=== PATIENT | male | born 1960 | race Two or more races ===

== ENCOUNTER 2016-06-26 08:18 | Emergency (ER) | payer SELFPAY ==
[~2016-06-26] VITALS: Ht 175.3 cm; Wt 93.4 kg
[~2016-06-26 08:18] MED LIST: ATIVAN0.5 M1 PO; BUS5 PO; CARBAMAZEP100 MG/5 M PO; COL100 PO; ECO81 PO; NOR10T PO; SERO100 PO; XANAX XR1 M1 PO; ZOC10 PO
[2016-06-26 08:21] VITALS: BP 153/96
== END 2016-06-26 09:27 | disposition home or self-care (01) ==
LOC: ED 08:18
DX: G50.0 Trigeminal neuralgia (principal); F41.9 Anxiety disorder, unspecified

== ENCOUNTER 2016-07-16 13:43 | Emergency (ER) | payer SELFPAY ==
[~2016-07-16] VITALS: Ht 177.8 cm; Wt 93.7 kg
[2016-07-16 14:02] VITALS: BP 148/92
== END 2016-07-16 14:15 | disposition left against medical advice (07) ==
LOC: ED 13:43
DX: G47.00 Insomnia, unspecified (principal); F41.9 Anxiety disorder, unspecified; G50.0 Trigeminal neuralgia; G89.29 Other chronic pain; F31.9 Bipolar disorder, unspecified; M25.569 Pain in unspecified knee; F20.9 Schizophrenia, unspecified; Z88.5 Allergy status to narcotic agent

== ENCOUNTER 2016-07-16 21:39 | Emergency (ER) | payer SELFPAY ==
[2016-07-17 01:33] VITALS: BP 138/85
== END 2016-07-17 01:33 | disposition home or self-care (01) ==
LOC: ED 21:39
DX: S62.102A Fracture of unspecified carpal bone, left wrist, initial encounter for closed fracture (principal); S83.92XA Sprain of unspecified site of left knee, initial encounter; S53.402A Unspecified sprain of left elbow, initial encounter; S43.402A Unspecified sprain of left shoulder joint, initial encounter; S80.812A Abrasion, left lower leg, initial encounter; Z88.5 Allergy status to narcotic agent; W17.89XA Other fall from one level to another, initial encounter; Y93.89 Activity, other specified; Y92.89 Other specified places as the place of occurrence of the external cause; Y99.8 Other external cause status
CPT/HCPCS: 90715; J1885; J2405; J3010; Q0092

== ENCOUNTER 2016-08-03 23:59 | Emergency (ER) | payer SELFPAY ==
[2016-08-04 00:52] VITALS: BP 134/86
== END 2016-08-04 00:52 | disposition home or self-care (01) ==
LOC: ED 23:59
DX: F41.9 Anxiety disorder, unspecified (principal); G50.0 Trigeminal neuralgia; Z76.0 Encounter for issue of repeat prescription; Z88.5 Allergy status to narcotic agent

== ENCOUNTER 2016-08-06 05:00 | Emergency (ER) | payer SELFPAY ==
[2016-08-06 08:44] VITALS: BP 117/74
== END 2016-08-06 08:44 | disposition home or self-care (01) ==
LOC: ED 05:00
DX: M25.532 Pain in left wrist (principal)

== ENCOUNTER 2016-08-26 21:24 | Emergency (ER) | payer MEDICAID ==
[2016-08-26 23:21] VITALS: BP 116/78
== END 2016-08-26 23:21 | disposition home or self-care (01) ==
LOC: ED 21:24
DX: S52.592A Other fractures of lower end of left radius, initial encounter for closed fracture (principal); S52.202A Unspecified fracture of shaft of left ulna, initial encounter for closed fracture; F41.9 Anxiety disorder, unspecified; W22.8XXA Striking against or struck by other objects, initial encounter; Y93.89 Activity, other specified; Y92.89 Other specified places as the place of occurrence of the external cause; Y99.8 Other external cause status
CPT/HCPCS: J1170; J1885; Q0162

== ENCOUNTER 2016-08-30 20:35 | Emergency (ER) | payer MEDICAID ==
[2016-08-30 22:39] VITALS: BP 126/88
== END 2016-08-30 22:39 | disposition home or self-care (01) ==
LOC: ED 20:35
DX: F41.9 Anxiety disorder, unspecified (principal); Z79.899 Other long term (current) drug therapy

== ENCOUNTER 2016-09-29 11:27 | Emergency (ER) | payer OTHER ==
[2016-09-29 15:05] VITALS: BP 143/86
== END 2016-09-29 15:05 | disposition home or self-care (01) ==
LOC: ED 11:27
DX: S52.572A Other intraarticular fracture of lower end of left radius, initial encounter for closed fracture (principal); S52.612A Displaced fracture of left ulna styloid process, initial encounter for closed fracture; G50.0 Trigeminal neuralgia; Z86.73 Personal history of transient ischemic attack (TIA), and cerebral infarction without residual deficits; Z88.5 Allergy status to narcotic agent; W18.40XA Slipping, tripping and stumbling without falling, unspecified, initial encounter; Y99.8 Other external cause status; Y93.89 Activity, other specified; Y92.89 Other specified places as the place of occurrence of the external cause
CPT/HCPCS: J1885; J3010; Q0162

== ENCOUNTER 2016-10-02 09:18 | Emergency (ER) | payer OTHER ==
[2016-10-02 13:37] VITALS: BP 145/89
== END 2016-10-02 13:37 | disposition home or self-care (01) ==
LOC: ED 09:18
DX: F41.9 Anxiety disorder, unspecified (principal); I10 Essential (primary) hypertension; Z79.899 Other long term (current) drug therapy; Z88.5 Allergy status to narcotic agent

== ENCOUNTER 2016-10-31 17:12 | Emergency (ER) | payer OTHER ==
[~2016-10-31] VITALS: Ht 175.3 cm; Wt 93.9 kg
[2016-10-31 21:27] VITALS: BP 142/56
== END 2016-10-31 21:27 | disposition home or self-care (01) ==
LOC: ED 17:12
DX: F41.9 Anxiety disorder, unspecified (principal); F13.10 Sedative, hypnotic or anxiolytic abuse, uncomplicated; Z86.73 Personal history of transient ischemic attack (TIA), and cerebral infarction without residual deficits

== ENCOUNTER 2016-11-27 19:38 | Emergency (ER) | payer OTHER ==
[2016-11-27 20:14] VITALS: BP 156/98
== END 2016-11-27 20:14 | disposition home or self-care (01) ==
LOC: ED 19:38
DX: Z76.0 Encounter for issue of repeat prescription (principal); F41.9 Anxiety disorder, unspecified; Z79.899 Other long term (current) drug therapy

== ENCOUNTER 2016-12-05 03:33 | Emergency (ER) | payer OTHER ==
[2016-12-05 04:51] VITALS: BP 141/91
== END 2016-12-05 04:51 | disposition home or self-care (01) ==
LOC: ED 03:33
DX: F41.1 Generalized anxiety disorder (principal); F19.239 Other psychoactive substance dependence with withdrawal, unspecified; F31.9 Bipolar disorder, unspecified

== ENCOUNTER 2017-01-05 07:30 | Emergency (ER) | payer OTHER ==
[2017-01-05 09:45] VITALS: BP 127/83
== END 2017-01-05 09:45 | disposition home or self-care (01) ==
LOC: ED 07:30
DX: Z76.0 Encounter for issue of repeat prescription (principal); F41.9 Anxiety disorder, unspecified; G50.0 Trigeminal neuralgia; F31.9 Bipolar disorder, unspecified; F20.9 Schizophrenia, unspecified

== ENCOUNTER 2017-01-07 09:29 | Emergency (ER) | payer OTHER ==
[~2017-01-07] VITALS: Ht 175.3 cm; Wt 94.3 kg
[2017-01-07 10:11] VITALS: BP 140/78
== END 2017-01-07 10:11 | disposition home or self-care (01) ==
LOC: ED 09:29
DX: Z76.0 Encounter for issue of repeat prescription (principal); G50.0 Trigeminal neuralgia; R03.0 Elevated blood-pressure reading, without diagnosis of hypertension; Z86.73 Personal history of transient ischemic attack (TIA), and cerebral infarction without residual deficits

== ENCOUNTER 2017-02-01 06:36 | Inpatient (IN) | payer OTHER ==
[~2017-02-01] VITALS: Ht 175.3 cm; Wt 95.7 kg
--- NOTE | 2017-02-01 07:08 | NUR ---
RECEIVED PT CRYING. LAYING IN BED, C/O RIGHT FACIAL, EAR, AND EYE PAIN. PT REPORTS HE CANNOT OPEN HIS EYES D/T PAIN. PT STATES "IT FEELS LIKE ELECTRICITY." PT OFFERED WARM BLANKET. PT REMAINS ON CM.
--- NOTE | 2017-02-01 07:11 | NUR ---
MEDICATION ADMINISTERED PER MD ORDER, PT VERBALIZED UNDERSTANDING OF MEDICATION PRIOR TO ADMINISTRATION.
--- NOTE | 2017-02-01 08:17 | NUR ---
PT CRYING AND CONTINUES TO C/O RIGHT FACIAL PAIN, DR GUIDO AWARE, NEW ORDERS RECEIVED.
--- NOTE | 2017-02-01 08:21 | NUR ---
MEDICATION ADMINISTERED IM PER DR GUIDO'S ORDERS, PT VERBALIZED UNDERSTANDING PRIOR TO ADMINISTRATION.
--- NOTE | 2017-02-01 09:32 | NUR ---
PT C/O "ELECTRICITY THROUGH MY FACE WHEN I OPEN MY EYES." PT NOT RELIEVED OF PAIN POST ADMINISTRATION. DR GUIDO AWARE, WILL CARRY OUT NEW ORDERS.
--- NOTE | 2017-02-01 09:43 | NUR ---
MEDICATION ADMINISTERED PER MD ORDER, PT VERBALIZES UNDERSTANDING OF MEDICATION PRIOR TO ADMINISTRATION.
--- NOTE | 2017-02-01 10:13 | NUR ---
PT CRYING OF PAIN, DR GUIDO AWARE, NO NEW ORDERS RECEIVED.
--- NOTE | 2017-02-01 10:17 | NUR ---
DR GUIDO AT BEDSIDE TO DISCUSS PLAN OF CARE.
--- NOTE | 2017-02-01 10:59 | NUR ---
MEDICATED FOR PAIN. PT STILL C/O 10/ FACIAL PAIN. NS BOLUS INFUSING.
--- NOTE | 2017-02-01 11:07 | NUR ---
PT C/O NAUSEA, DR. GUIDO INFORMED, PER MD GIVE ZOFRAN 4 MG IVP. PT @ CT AT THIS TIME, AWAKE, ORIENTED, ABLE TO TALK CLEARLY, NO SIGNS OF RESPIRATORY DISTRESS.
--- NOTE | 2017-02-01 11:10 | NUR ---
PT TO CT VIA [facility].
--- NOTE | 2017-02-01 11:16 | NUR ---
PT RETURNED FROM CT VIA [facility].
--- NOTE | 2017-02-01 11:48 | NUR ---
PT CONTINUES TO C/O PAIN. PT STATES "I DONT WANT ANYMORE PAIN MEDICATION." DR GUIDO AWARE.
--- NOTE | 2017-02-01 11:57 | NUR ---
PT FEELING "ANXIOUS," DR GUIDO AWARE, WILL CARRY OUT NEW ORDERS.
[2017-02-01] MEDS ORDERED: XAN1 PO (11:59)
[2017-02-01] MEDS ORDERED: TEGRETOL200 MG PO (12:02)
--- NOTE | 2017-02-01 12:15 | NUR ---
PT C/O TO HAVE INTERMITTENT FACIAL PAIN AND STATES "PAIN 10/10" PT STATES " I DON'T WANT ANYMORE PAIN MEDICATION". MEDICATED FOR ANXIETY, ADMINSTERED PER MD ORDER. RESIDENT AT BEDSIDE.
--- NOTE | 2017-02-01 12:24 | NUR ---
REPORT CALLED TO MARIE ON TELE, TO RECIEVE PT.
--- NOTE | 2017-02-01 12:44 | NUR ---
VERIFIED WITH PT, STATES NO KNOWN ALLERGIES.
[2017-02-01 13:26] LABS: T3 TOTAL 1.23 ng/mL
[2017-02-01 13:36] LABS: CHOLESTEROL/HDL RATIO 2.8; MAGNESIUM 1.7 mg/dL (1.8-2.4); PHOSPHOROUS 2.9 mg/dL (2.5-4.9)
[2017-02-01 13:41] LABS: FREE T4 0.77 ng/dL (0.76-1.46); T4(THYROXINE) 7.7 ug/dL (4.7-13.3)
--- NOTE | 2017-02-01 13:50 | NUR ---
RECEIVED PT FROM ED VIA [facility], CAME IN DUE TO RIGHT SIDED FACIAL PAIN THAT STARTED AROUND 6 AM. AAOX4. C/O 8/10 THROBBING PAIN ON THE NECK AND RIGHT FACE. ABLE TO MOVE HEAD FROM SIDE TO SIDE. C/O DIZZINESS. W/ RIGHT FACIAL DROOP AND WEAK HAND RACQUET MAKER. W/ DECREASED SENSATION ON BLE AND RIGHT SIDE OF THE FACE. C/O NON-PRODUCTIVE COUGH, LUNG SOUNDS CTA. C/O NAUSEA AND DIARRHEAL EPISODES X3 DAYS, HAD 2 BM'S TODAY. W/ MILD TREMORS NOTED ON BUE. W/ GAUGE 22 IV ON THE LEFT FOOT, FLUSHING WELL, PATENT AND INTACT. SIDE RAILS UPX2. CALL LIGHT ON REACH. ENDORSED TO PRIMARY NURSE OLINDA FOR CONTINUITY OF CARE
[2017-02-01 13:58] VITALS: BP 158/88
[2017-02-01 14:02] VITALS: Ht 175.3 cm; Wt 95.7 kg
--- NOTE | 2017-02-01 14:11 | NUR ---
ABLE TO TAKE DOSE OF IMITREX AND ATIVAN, REPORTS FEELING HUNGRY, WILL CONSULT WITH DR BALDWIN, ASSISTED TO POSITION OF COMFORT, LIGHTS TURNED OFF, TV OFF, CALL LIGHT WITHIN REACH, WILL CONTINUE TO PROVIDE CARE.
--- NOTE | 2017-02-01 14:47 | NUR ---
RESTING IN BED, AROUSABLE TO LIGHT TOUCH, ABLE TO TAKE ALL PO MEDS WITHOUT DISTRESS, CALL LIGHT WITHIN REACH, WILL CONTINUE TO PROVIDE CARE.
--- NOTE | 2017-02-01 15:50 | NUR ---
REFUSED FLU VAC, RISKS AND BENEFITS EXPLAINED, VERBALIZED UNDERSTANDING. CALL LIGHT WITHIN REACH.
--- NOTE | 2017-02-01 16:25 | NUR ---
C/O FACIAL PAIN 10/03, OFFERED PAIN MED, DECLINED, REQUESTING "PAIN MEDICATION IN THE VEIN" PT MADE AWARE OF PAIN MEDICATIONS ORDERED, REFUSED DOSE OF NORCO, REPORTS FEELING "VERY HUNGRY" SNACKS OFFERED, DECLINED, WILL WAIT FOR DINNER TRAY. CALL LIGHT WITHIN REACH.
[2017-02-01 17:09] VITALS: BP 11146/8; BP 114/68
--- NOTE | 2017-02-01 18:25 | NUR ---
RESTING IN BED, UNDER NO APPARENT DISTRESS, AROUSABLE TO LIGHT TOUCH, ABLE TO TOLERATED DINNER WITHOUT GI DISTRESS OR CHEWING DIFFICULTIES, EDUCATION PROVIDED ON CURRENT MEDICATIONS' PURPOSE AND POSSIBLE SIDE EFFECTS, NO OTHER SIGNIFICANT CHANGES NOTED, CARE WILL BE ENDORSED TO NIGHT NURSE.
--- NOTE | 2017-02-01 20:44 | NUR ---
PT CURRENTLY RESTING IN BED, C/O FACIAL PAIN 12/04, MEDICATED PER EMAR. TELE #38 SHOWING SINUS RHYTHM, DENIES CHEST PAIN. PULSES PALPABLE IN ALL EXTREMITIES, NO EDEMA NOTED. LUNG SOUNDS CTA BILATERALLY, DENIES SOB. BOWEL SOUNDS ACTIVE, LAST BM 02/01/17, PT REPORTS DIARRHEA. VOIDING WELL. GENERALIZED WEAKNESS, MILD TREMORS BUE. SKIN INTACT. IV PATENT AND INTACT. BED IN LOWEST POSITION, SIDE RAILS UP X2, CALL LIGHT WITHIN REACH. WILL CONTINUE TO MONITOR.
[2017-02-01 21:46] VITALS: BP 125/73
--- NOTE | 2017-02-01 22:10 | NUR ---
PT REPORTING PAIN 10/03, STATES MEDICATION INEFFECTIVE, DR SAINI INFORMED.
--- NOTE | 2017-02-02 00:12 | NUR ---
PT CURRENTLY RESTING IN BED, NO ACUTE DISTRESS. WILL CONTINUE TO MONITOR.
[2017-02-02 02:14] LABS: microscopic required? NO
[2017-02-02 02:23] LABS: urine erythrocyte NEGATIVE (NEGATIVE)
[2017-02-02 02:29] LABS: AMPHETAMINE QUAL UR NONE DETECTED (NEG <=1000)
[2017-02-02 05:21] VITALS: BP 112/63
--- NOTE | 2017-02-02 06:07 | NUR ---
PT SLEPT PERIODICALLY THROUGHOUT NIGHT, NO ACUTE DISTRESS. ALL NEEDS MET AND ATTENDED TO. NO SIGNIFICANT CHANGES. IV PATENT AND INTACT. MEDICATED PAIN PER EMAR. BED IN LOWEST POSITION, SIDE RAILS UP X2, CALL LIGHT WITHIN REACH. WILL ENDORSE CARE TO ONCOMING NURSE.
[2017-02-02 06:10] LABS: BASOPHIL % 0.5 % (0-2); PLATELET COUNT 166 x10^3mcL (130-400); RED CELL DISTRIBUTION WIDTH 14.3 % (11.5-14.5)
[2017-02-02 06:24] LABS: CALCIUM 7.7 mg/dL (8.5-10.1); CARBON DIOXIDE 29.8 mmol/L (21-32); CHLORIDE SERUM 107 mmol/L (98-107); CREATININE SERUM 0.6 mg/dL (0.7-1.3); GFR1 > 60 mL/min; GLUCOSE SERUM 100 mg/dL (74-106); POTASSIUM SERUM 3.7 mmol/L (3.5-5.1); SODIUM SERUM 143 mmol/L (136-145)
--- NOTE | 2017-02-02 07:45 | NUR ---
RECEIVED PT IN BED ALERT AND ORIENTED X4. NSR ON TELE MONITOR. REPORTS PAIN TO R SIDE OF FACE RATED 10/10. OFFERED NORCO BUT PT GOT UPSET THAT BECAUSE HE STATES IT DOESNT HELP. OFFERED ATIVAN PO FOR PTS ANXIETY BUT PT REFUSED STATING THAT HE PREFERS TO TAKE XANAX. PAGED DR SCHMITT. PT HAVING DIFFICULTY SPEAKING, STATES IT IS RELATED TO HIS PAIN. AMBULATORY. SKIN CDI.
--- NOTE | 2017-02-02 08:30 | NUR ---
PT AGREEABLE TO TAKING NORCO NOW FOR PAIN, NORCO PO GIVEN. BEDSIDE ROUNDS DONE WITH DR AVILES, EXPLAINED THAT ATIVAN IS TO BE GIVEN INSTEAD OF XANAX. PT HESITANT AND WANTED TO GO HOME BUT ENDED UP AGREEABLE TO PLAN OF CARE.
[2017-02-02 09:25] VITALS: BP 128/83
[2017-02-02 12:00] VITALS: BP 127/87
--- NOTE | 2017-02-02 13:20 | NUR ---
PT VERY ANXIOUS, COMPLAINING OF PAIN, STATES THAT NOTHING WE GIVE HIM IS WORKING, WANTS TO SPEAK TO DR. DR SCHMITT CAME AND SPOKE TO PT, EXPLAINED TO PT THAT HE IS BEING TREATED F0R BENZODIAZEPINE WITHDRAWALS. PT AGREEABLE NOW TO TAKING TORADOL AND GABAPENTIN FOR PAIN.
[2017-02-02 17:43] VITALS: BP 131/84
--- NOTE | 2017-02-02 18:32 | NUR ---
PT LYING IN BED, NO SIGNS OF ACUTE DISTRESS OR DISCOMFORT AT THIS TIME. MEDICATED WITH NORCO Q4H FOR COMPLAINT OF PAIN TO R SIDE OF FACE.
--- NOTE | 2017-02-02 20:05 | NUR ---
RECEIVED PT FROM PREVIOUS SHIFT NURSE. PT AOX4. TELE #38, NSR, HR 52. DENIES CP/PRESSURE. PULSES PRESENT, NO EDEMA NOTED. LUNG SOUNDS CLEAR, ON RA. DENIES SOB/DIFFICULTY BREATHING. BOWEL SOUNDS ACTIVE. VOIDS FREELY. TREMORS NOTED BUE. SKIN INTACT. IV ON L. FOOT, INTACT AND PATENT. BED IN LOWEST POSITION. CALL LIGHT WITHIN REACH. WILL CONTINUE TO MONITOR.
[2017-02-02 21:57] VITALS: BP 140/85
--- NOTE | 2017-02-03 01:45 | NUR ---
PT RESTING IN BED. RR EVEN AND UNLABORED. NO ACUTE DISTRESS NOTED. CALL LIGHT WITHIN REACH. BED IN LOWEST POSITION. WILL CONTINUE TO MONITOR.
--- NOTE | 2017-02-03 05:02 | NUR ---
PT REQUESTED IV ATIVAN, EXPLAINED THAT MEDICATION IS A BENZO LIKE XANAX AND OFFERED NORCO OR TORADOL FOR HIS PAIN. PT AGREED TO TAKE NORCO. WILL CONTINUE TO MONITOR.
[2017-02-03 05:35] VITALS: BP 122/69
--- NOTE | 2017-02-03 06:21 | NUR ---
PT SHAKING AND CRYING, REQUESTING MEDICATION FOR ANXIETY. DR. SAINI PAGED, AWAITING CALL BACK.
[2017-02-03 06:39] LABS: BASOPHIL % 0.7 % (0-2); PLATELET COUNT 170 x10^3mcL (130-400); RED CELL DISTRIBUTION WIDTH 14.1 % (11.5-14.5)
[2017-02-03 06:41] LABS: CALCIUM 7.7 mg/dL (8.5-10.1); CARBON DIOXIDE 27.1 mmol/L (21-32); CHLORIDE SERUM 105 mmol/L (98-107); CREATININE SERUM 0.6 mg/dL (0.7-1.3); GFR1 > 60 mL/min; GLUCOSE SERUM 107 mg/dL (74-106); PHOSPHOROUS 3.1 mg/dL (2.5-4.9); POTASSIUM SERUM 4.4 mmol/L (3.5-5.1); SODIUM SERUM 145 mmol/L (136-145)
--- NOTE | 2017-02-03 06:53 | NUR ---
DR. SAINI AND DR. SCHMITT SPOKE TO PT, PT CONTINUES TO BE UNHAPPY WITH HIS CARE. DECIDES TO LEAVE AMA, UNWILLING TO SIGN PAPERWORK. PT GETTING DRESSED AT THIS TIME.
--- NOTE | 2017-02-03 07:03 | NUR ---
ON ENTERING PATIENT'S ROOM FOR CHANGE OF SHIFT REPORT FROM NIGHT NURSE, PATIENT FOUND SITTING ON SIDE OF BED, REQUESTING TO HAVE HIS IV REMOVED BECAUSE HE WANTS TO LEAVE AMA. ENCOURAGED TO WAIT FOR DOCTORS ROUNDS, TO SPEAK WITH THE DOCTOR BUT PATIENT REFUSED. PATIENT AGREED TO SIGN AMA FORM. AFTER SIGNING FORM, IV FROM L FOOT REMOVED INTACT. PATIENT ENCOURAGED TO REST FOOT FOR 5 MIN BEFORE WALKING ON IT BUT PATIENT INSISTED ON LEAVING IMMEDIATELLY. HE SAID THAT WOULD BE WALKING HOME HE [place]IVES [place] [place] FROM [address] HOSPITAL. ENCOURAGED TO FOLLOW-UP WITH HIS PCP. PATIENT ESCORTED TO FRONT LOBBY BY JEWEL STAKER, AMBULATORY.
--- NOTE | 2017-02-03 07:10 | NUR ---
PT SIGNED AMA IV AND ID BAND TELE REMOVED. PT ESCORTED BY PROFESSIONAL MODEL TO LOBBY
== END 2017-02-03 07:12 | disposition left against medical advice (07) | DRG 770 ==
LOC: ED 06:36 → DU 11:57
PROVIDERS: ADMIT Family Medicine Sports Medicine
DX: F13.239 Sedative, hypnotic or anxiolytic dependence with withdrawal, unspecified (principal); E83.42 Hypomagnesemia; I10 Essential (primary) hypertension; G44.41 Drug-induced headache, not elsewhere classified, intractable; T42.4X5A Adverse effect of benzodiazepines, initial encounter; F25.0 Schizoaffective disorder, bipolar type; G50.0 Trigeminal neuralgia; F41.1 Generalized anxiety disorder; E78.5 Hyperlipidemia, unspecified; Z86.73 Personal history of transient ischemic attack (TIA), and cerebral infarction without residual deficits; Z68.31 Body mass index [BMI] 31.0-31.9, adult; Y92.018 Other place in single-family (private) house as the place of occurrence of the external cause; I16.0 Hypertensive urgency
CPT/HCPCS: 82962; 83880; 84439; J1170; J1885; J2060; J2405; J3475; J7030; Q0092

== ENCOUNTER 2017-02-06 16:21 | Emergency (ER) | payer OTHER ==
[~2017-02-06 16:21] MED LIST changes: +TEGRETOL200 MG PO; +XAN1 PO
[2017-02-06 18:39] VITALS: BP 151/105
== END 2017-02-06 18:40 | disposition home or self-care (01) ==
LOC: ED 16:21
DX: S66.912A Strain of unspecified muscle, fascia and tendon at wrist and hand level, left hand, initial encounter (principal); S46.912A Strain of unspecified muscle, fascia and tendon at shoulder and upper arm level, left arm, initial encounter; F41.9 Anxiety disorder, unspecified; R03.0 Elevated blood-pressure reading, without diagnosis of hypertension; V49.9XXA Car occupant (driver) (passenger) injured in unspecified traffic accident, initial encounter; Y93.89 Activity, other specified; Y99.8 Other external cause status; Y92.89 Other specified places as the place of occurrence of the external cause

== ENCOUNTER 2017-02-11 08:05 | Inpatient (IN) | payer OTHER ==
[~2017-02-11] VITALS: Ht 175.3 cm; Wt 95.4 kg
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
[2017-02-11 09:07] LABS: BASOPHIL % 0.5 % (0-2); PLATELET COUNT 214 x10^3mcL (130-400)
--- NOTE | 2017-02-11 09:34 | NUR ---
PT RESTING ON GURNEY. NO S/S OF DISTRESS NOTED.
[2017-02-11 09:52] LABS: CALCIUM 8.5 mg/dL (8.5-10.1); CHLORIDE SERUM 103 mmol/L (98-107); CREATININE SERUM 0.7 mg/dL (0.7-1.3); GFR1 > 60 mL/min; GLUCOSE SERUM 104 mg/dL (74-106); POTASSIUM SERUM 4.3 mmol/L (3.5-5.1); SODIUM SERUM 138 mmol/L (136-145)
[2017-02-11 10:14] LABS: ALBUMIN 3.9 g/dL (3.4-5.0); ALKALINE PHOSPHATASE 81 U/L (46-116); ALT/SGPT 66 U/L (16-63); AST/SGOT 31 U/L (15-37); BILIRUBIN TOTAL 0.4 mg/dL (0.20-1.00); TOTAL PROTEIN, SERUM 7.2 g/dL (6.4-8.2)
[2017-02-11 10:18] LABS: AMPHETAMINE QUAL UR NONE DETECTED (NEG <=1000)
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
[2017-02-11 11:31] LABS: T3 TOTAL 1.34 ng/mL
[2017-02-11 11:35] LABS: FREE T4 0.77 ng/dL (0.76-1.46); FREE THYROXINE INDEX 2.3 ug/dL (1.4-4.5); T4(THYROXINE) 8.9 ug/dL (4.7-13.3)
--- NOTE | 2017-02-11 11:48 | NUR ---
PROVIDED PT WITH SANDWICH AND SODA, OKAY PER DR. MAX, AWAITING ADMIT ROOM ASSIGNMENT
[2017-02-11 12:21] LABS: CHOLESTEROL/HDL RATIO 3.1; MAGNESIUM 1.8 mg/dL (1.8-2.4); PHOSPHOROUS 2.9 mg/dL (2.5-4.9)
--- NOTE | 2017-02-11 12:29 | NUR ---
PT RESTING ON GURNEY IN NO ACUTE DISTRESS. AWAITING ADMIT BED.
--- NOTE | 2017-02-11 13:38 | NUR ---
PT C/O 12/04 PAIN. PT MEDICATED WITH NORCO PER ADMIT ORDERS.
--- NOTE | 2017-02-11 14:23 | NUR ---
STILL AWAITING ADMIT ROOM ASSIGNMENT; PT C/O RIGHT FACIAL PAIN RATED 9/10
--- NOTE | 2017-02-11 14:33 | NUR ---
REPORT GIVEN TO JUNIE RIOS TO ASSUME CARE.
--- NOTE | 2017-02-11 14:45 | NUR ---
RECEIVED PT FROM ED VIA [facility], CAME IN DUE TO ANXIETY AND RIGHT FACIAL NUMBNESS. AAOX4. C/O 9/10 HEADACHE AND RIGHT FACIAL PAIN. C/O RIGHT FACIAL NUMBNESS. NO FACIAL DROOP NOTED. HAND TECHNICAL OPERATIONS MANAGER ARE EQUAL. NO SOB NOTED. C/O 6/10 PRESSURE CHEST PAIN, NON-RADIATING, SB-SR ON THE MONITOR. DENIES ABDOMINAL DISCOMFORT. IV SITE PATENT AND INTACT. SIDE RAILS UPX2. CALL LIGHT ON REACH.
[2017-02-11 14:54] VITALS: BP 145/88
[2017-02-11 15:00] VITALS: Ht 175.3 cm; Wt 95.4 kg
--- NOTE | 2017-02-11 15:00 | NUR ---
DR. WISEMAN MADE AWARE THAT PT IS C/O 9/10 HEADACHE AND RIGHT SIDED FACIAL PAIN AND 6/10 PRESSURE CHEST PAIN. PER DR. WISEMAN, SHE WILL COME AND SEE THE PT.
--- NOTE | 2017-02-11 15:07 | NUR ---
ENDORSED TO PRIMARY NURSE JORGE FOR CONTINUITY OF CARE.
--- NOTE | 2017-02-11 18:32 | NUR ---
Pt. AAOX4, RESPIRATIONS EVEN AND UNLABORED NO C/O PAIN/DISCOMFORT AT THIS TIME. NO SIGNS PAIN/DISCOMFORT NOTED. NO DISTRESS NOTED. TELE IN PLACE. IVF RUNNING TO IV RAC PATENT AND INTACT. Pt. TOLERATED DIET WELL. SZ PRECAUTIONS IN PLACE. BED LOW/LOCKED. CALL LIGHT IN REACH.
--- NOTE | 2017-02-11 19:50 | NUR ---
RECEIVED PT FROM PREVIOUS SHIFT. PT RESTING IN BED AT THIS TIME. RESPIRATIONS EVEN AND UNLABORED ON RA. NO ACUTE DISTRESS AT THIS TIME. SEIZURE PRECAUTIONS REMAIN IN PLACE. IV TO RAC PATENT AND INTACT INFUSING WELL. CALL LIGHT WITHIN REACH. BED IN LOWEST POSITION. WILL CONTINUE TO MONITOR
[2017-02-11 21:33] VITALS: BP 119/74
--- NOTE | 2017-02-12 02:47 | NUR ---
PT COMPLAINING OF PAIN 01/03. NOTIFIED MORPHINE ONE TIME ADMINISTERED. PT TOLERATED WELL. WILL CONTINUE TO MONITOR
[2017-02-12 06:00] VITALS: BP 123/70
--- NOTE | 2017-02-12 06:49 | NUR ---
PT RESTING IN BED. RESPIRATIONS EVEN AND UNLABORED. NO ACUTE DISTRESS AT THIS TIME. NO SIGNS OF FACIAL DROOP OR SLURRED SPEECH WHEN WOKEN UP. IV TO RAC PATENT AND INTACT INFUSING WELL. NO PAIN INDICATED AT THIS TIME. BED IN LOWEST POSITION. CALL LIGHT WITHIN REACH. WILL ENDORSE CARE TO ONCOMING SHIFT
[2017-02-12 07:09] LABS: CALCIUM 7.8 mg/dL (8.5-10.1); CARBON DIOXIDE 28.7 mmol/L (21-32); CHLORIDE SERUM 108 mmol/L (98-107); CREATININE SERUM 0.7 mg/dL (0.7-1.3); GFR1 > 60 mL/min; GLUCOSE SERUM 133 mg/dL (74-106); MAGNESIUM 1.8 mg/dL (1.8-2.4); PHOSPHOROUS 3.2 mg/dL (2.5-4.9); POTASSIUM SERUM 4.2 mmol/L (3.5-5.1); SODIUM SERUM 141 mmol/L (136-145)
--- NOTE | 2017-02-12 07:15 | NUR ---
PT IS LAYING IN BED WATCHING TV. AA/OX4, SEIZURE PRECAUTIONS INPLACE. TELE . 61 HR. LUNGS CLEAR ON RA. BREATHING EVEN AND UNLABOED ON RA. NO RESP DISTRESS OR SOB NOTED. C/O FEELING ANXIOUS. WILL MEDICATED PER EMAR. IV TO THE RAC INTACT AND PATENT. WILL CONTINUE TO MONITOR PT. CALL LIGHT IN REACH.
[2017-02-12 07:50] LABS: BASOPHIL % 0.4 % (0-2); PLATELET COUNT 180 x10^3mcL (130-400); RED CELL DISTRIBUTION WIDTH 14.2 % (11.5-14.5)
--- NOTE | 2017-02-12 08:16 | NUR ---
C/O FEELING ANXIOUS, MEDICATED PER EMAR.
--- NOTE | 2017-02-12 08:16 | NUR ---
LAB CALLED. PT CARBAMAZEPINE 14.7M, MADE DOCTOR AWARE.
--- NOTE | 2017-02-12 09:20 | NUR ---
PT C/O R HEAD PAIN AND R LEG PAIN. MEDICATED PER EMAR.
[2017-02-12 10:34] VITALS: BP 151/94
[2017-02-12 11:41] LABS: microscopic required? NO
[2017-02-12 12:22] LABS: urine erythrocyte NEGATIVE (NEGATIVE)
[2017-02-12 13:24] VITALS: BP 141/94
[2017-02-12 17:17] VITALS: BP 154/95
--- NOTE | 2017-02-12 17:57 | NUR ---
PT C/O FACIAL PAIN 10/10, CRYING AT BEDSIDE. WILL MEDICATED PER EMAR.
--- NOTE | 2017-02-12 18:28 | NUR ---
PT IS SITTING UP IN BED EATTING HIS DINNER AND WATCHING TV. NO ACUTE CHANGES AT THIS TIME. IS MEDICATED PER EMAR FOR RIGHT FACIAL PAIN. NO SIGN OF DISCOMFORT OR CRYING AT THIS TIME. BREATHING EVEN AND UNLABORED, NO RESP DISTRESS OR SOB NOTED. SEIZURE PREC IN PLACE. IV TO THE RAC INTACT AND PATENT. WILL ENDORSE PT TO INCOMING NURSE.
--- NOTE | 2017-02-12 19:41 | NUR ---
RECEIVED PT FROM PREVIOUS SHIFT. AAOX4. TELE #44. DENIES CP/PRESSURE AT THIS TIME. COMPLAINING OF NERVE PAIN IN HIS FACE AND APPEARS TO HAVE DIFFICULTY SPEAKING DUE TO THE PAIN. PULSES STRONG BILAT. NO EDEMA NOTED. LUNG CTA BILAT. DENIES SOB ON RA. BOWEL SOUNDS ACTIVE X4. NO WEAKNESS NOTED. PT AMBULATORY. SKIN CDI. IV TO RAC PATENT AND INTACT. INFUSING WELL. NS @100ML/HR. BED IN LOWEST POSITION. CALL LIGHT WITHIN REACH. WILL CONTINUE TO MONITOR
--- NOTE | 2017-02-12 19:48 | NUR ---
DR. RODRIGUEZ IN TO SEE PT NOW. WILL FOLLOW UP ON ANY FURTHER ORDERS.
[2017-02-12 20:43] VITALS: BP 140/83
--- NOTE | 2017-02-13 01:14 | NUR ---
PT AWAKE IN BED. COMPLAINING OF CONSTANT PAIN TO SIDE OF HEAD. MD NOTIFIED. WILL CONTINUE TO MONITOR
[2017-02-13 05:16] VITALS: BP 117/82
--- NOTE | 2017-02-13 06:15 | NUR ---
PT STATES HIS THROAT FEELS SWOLLEN AND IT IS HARD TO BREATHE. NC 2L APPLIED. WILL NOTIFY MD AND CONTINUE TO MONITOR
--- NOTE | 2017-02-13 06:23 | NUR ---
PT RESTING SUPINE IN BED. AAOX4. RESPIRATIONS EVEN AND UNLABORED AT THIS TIME ON 2LNC. TOLERABLE PAIN AT THIS TIME. IV TO RAC PATENT AND INTACT. INFUSING WELL. NS @100ML/HR. NO FACIAL DROOP PRESENT. SPEECH IS CLEAR. SEIZURE PRECAUTIONS STILL IN PLACE. BED IN LOWEST POSITION. CALL LIGHT WITHIN REACH. WILL ENDORSE CARE TO ONCOMING SHIFT
[2017-02-13 06:35] LABS: BASOPHIL % 0.6 % (0-2); PLATELET COUNT 207 x10^3mcL (130-400); RED CELL DISTRIBUTION WIDTH 13.9 % (11.5-14.5)
[2017-02-13 06:56] LABS: CALCIUM 8.3 mg/dL (8.5-10.1); CARBON DIOXIDE 27.5 mmol/L (21-32); CHLORIDE SERUM 106 mmol/L (98-107); CREATININE SERUM 0.6 mg/dL (0.7-1.3); GFR1 > 60 mL/min; GLUCOSE SERUM 93 mg/dL (74-106); POTASSIUM SERUM 4.1 mmol/L (3.5-5.1); SODIUM SERUM 140 mmol/L (136-145)
--- NOTE | 2017-02-13 07:55 | NUR ---
AT 0730 - RECEIVED PATIENT FROM NIGHT NURSE. PATIENT AWAKE, ALERT AND ORIENTED. C/O R FACIAL PAIN. MONITOR SHOWING SINUS RHYHTM; RATE 65. IV INFUSING NS AT 100ML/HR. MEDICATED WITH IMITREX AND ATIVAN PO PER EMAR. SAT UP IN BED FOR BREAKFAST.
[2017-02-13 08:51] VITALS: BP 124/89
--- NOTE | 2017-02-13 10:15 | NUR ---
AT 0815 - SEEN BY DR AVILES DURING MORNING ROUNDS. MEDICAL TEAM DOCTORS, JULI DAVIS AND MYSELF PRIMARY NURSE ALSO PRESENT. DR AVILES SPOKE WITH PATIENT ABOUT PLAN OF TREATMENT AND EXPLAINED EFFECTS OF MEDICATIONS. TO RESUME TEGRATOL - LEVEL WITHIN THERAPEUTIC RANGE TODAY. FOR PT EVAL. AT 0930 - GIVEN TDAP VACCINE ORDERED. CHECKED WITH DR HERNANDEZ: OK TO ADMINISTER. TRIGEMINAL NEURALGIA IS NOT A CONTRAINDICATION ACCORDING TO
--- NOTE | 2017-02-13 11:02 | NUR ---
ECHOCARDIOGRAM IN PROGRESS. PATIENT C/O FACIAL PAIN AT THIS TIME THAT HAS NOT BEEN CONTROLLED BY TORADOL ADMINISTERED EARLIER.
--- NOTE | 2017-02-13 11:04 | NUR ---
CALL PLACED FOR DR TRUJILLO TO NOTIFY OF PATIENT'S PAIN.
[2017-02-13 12:56] VITALS: BP 134/80
--- NOTE | 2017-02-13 13:18 | NUR ---
AT 1150 - MEDICATED WITH ULTRAM PER EMAR. FAMILY AT BEDSIDE. AT 1300 - EATING LUNCH. IT TAKES PATIENT MORE THAN AN HOUR TO EAT MEALS DUE TO DIFFICULTY OPENING AND CLOSING MOUTH BECAUSE OF PAIN. NOW GIVEN ATIVAN FOR ANXIETY.
--- NOTE | 2017-02-13 17:13 | NUR ---
AT 1650 - PATIENT C/O SEVERE PAIN IN FACE. APPEARED VERY ANXIOUS. MEDICATED WITH IV TORADOL AND PO ATIVAN. AT 1700 - PATIENT BECAME FURTHER AGGITATED AND ANXIOUS AND C/O CHEST PAIN. SEEN BY DR TRUJILLO AT THIS TIME. BP 165/93. HR 59. MONITOR SHOWING SINUS RHYTHM. PATIENT PLACED ON O2 VIA NC AT 2L AND REASSURANCE PROVIDED FOR PATIENT. AT 1715 - APPEARS A LITTLE CALMER. CONTINUING TO MONITOR CLOSELY.
[2017-02-13 18:03] VITALS: BP 157/85
--- NOTE | 2017-02-13 18:37 | NUR ---
PATIENT APPEARS CALMER AT THIS TIME. HAS BEEN GIVEN ADDITIONAL PAIN MEDICATION (ULTRUM) PER EMAR. VSS. RESTING QUIETLY. IV INFUSION REDUCED TO 10 ML/HR PER NEW ORDER. HAS NOT EATEN DINNER YET. WILL ENDORSE CARE TO NIGHT NURSE.
--- NOTE | 2017-02-13 20:00 | NUR ---
PT A/A/O X4. DENIES DIZZINESS, C/O PAIN ON THE RIGHT SIDE OF THE FACE WITH PAIN LEVEL OF 10/10. DENIES PAIN MEDICATION THUS FAR. PT STATED "MY PAIN IS ALWAYS A 10.". BREATH SOUNDS CLEAR. BREATHING EVEN AND UNLABORED ON ROOM AIR. DENIES CHEST PAIN AND PRESSURE. BOWEL SOUNDS ACTIVE. NO C/O N/V AND ABD PAIN. IV INTACT ON THE RAC INFUSING WITH NS AT 10 ML/HR. MADE PT COMFORTABLE. PLACED CALL LIGHT WITH IN REACH. WILL CONTINUE TO MONITOR.
[2017-02-13 21:03] VITALS: BP 134/74
--- NOTE | 2017-02-13 21:28 | NUR ---
PT HAD EPISODE OF RIGHT SIDED NERVE PAIN WHILE TAKING NIGHT MEDICATION. PT TOLERATED MEDICATION WELL DESPITE THE EPISODE OF FACIAL PAIN. PT SPEECH BECAME MORE SLURRED, PT WAS DROOLING A LITTLE BIT, PATIENT BECAME TENSE WITH PAIN, AND PATIENT BECAME AGGITATED AND STATED "I THINK IM GOING TO . HELP ME.". AFTER 2 MINUTES PATIENTS EPISODE OF FACIAL PAIN LESSENED. PT WANTED SOMETHING TO CALM HIM DOWN. GAVE PT ATIVAN PO. PT TOLERATED IT WELL. WILL CONTINUE TO MONITOR.
--- NOTE | 2017-02-14 00:15 | NUR ---
PT RESTING WITH EYES CLOSED NO DISTRESS AND DISCOMFORT NOTED. WILL CONTINUE TO MONITOR.
--- NOTE | 2017-02-14 04:12 | NUR ---
PT C/O FEELING ANXIOUS AND PAIN ON THE RIGHT SIDE OF THE FACE. GAVE PT ATIVAN PO AND TORADOL IVP. PT TOLERATED MEDICATION WELL. WILL CONTINUE TO MONITOR.
[2017-02-14 05:01] VITALS: BP 113/78
--- NOTE | 2017-02-14 06:02 | NUR ---
PT WANTED SCHEDULED TEGRETOL PO EARLY. DR. SAINI AND DR. TRUJILLO AWARE AND STATED ITS OKAY TO GIVE SCHEDULED MEDICATION EARLY. PT TOLERATED MEDICATION WELL. WILL ENDORSE TO THE AM NURSE ACCORDINGLY.
--- NOTE | 2017-02-14 07:15 | NUR ---
IJEOMA RN NOTIFIED ABOUT TEGRETOL BEING GIVEN AT 0602 AM AND ANOTHER DOSE ORDERED FOR 0900 TO BE FOLLOWED UP.
--- NOTE | 2017-02-14 07:25 | NUR ---
400 MG TEGRATOL GIVEN AT 0600. PAGED DR TRUJILLO REGARDING NEXT SCHEDULED DOSE.
--- NOTE | 2017-02-14 07:31 | NUR ---
RECEIVED PT FROM NIGHT NURSE IN NO ACUTE DISTRESS. PT ASLEEP IN BED, RESPIRATIONS EVEN AND UNLABORED ON RA. IVF INFUSING AT BEDSIDE. SEIZURE PRECAUTIONS IN PLACE. BED IN LOWEST POSITION. CALL LIGHT WITHIN REACH. WILL CONTINUE TO MONITOR.
[2017-02-14 08:52] VITALS: BP 133/81
[2017-02-14 12:11] VITALS: BP 112/71
--- NOTE | 2017-02-14 12:34 | NUR ---
PT EATING LUNCH IN BED IN NO ACUTE DISTRESS. RESPIRATIONS EVEN AND UNLABORED ON RA. IVF INFUSING AT BEDSIDE. BED IN LOWEST POSITION. CALL LIGHT WITHIN REAH. WILL CONTINUE TO MONITOR.
[2017-02-14] MEDS ORDERED: XAN1 PO (13:02)
[2017-02-14] MEDS ORDERED: NOR10T PO (13:03)
[2017-02-14 13:13] VITALS: BP 133/81
--- NOTE | 2017-02-14 14:21 | NUR ---
PHYSICAL THERAPY DAILY NOTES CO-SIGN All documentation done by the Superintendent Compressor Stations for 02/14/17 has been reviewed. I agree with the documentation. I CONCUR W/ROOFING PLANT SUPERVISOR NOTE; CONT WITH PT, FOCUS ON STRENGTHENING TO IMPROVE LIMB STABILITY Reviewed/Co-Signed by: Juliann Pennington V PT Documentation Done by: DONNA VILLANUEVA PTA
--- NOTE | 2017-02-14 15:09 | NUR ---
PT D/C TO HOME IN NO ACUTE DISTRESS. RESPIRATIONS EVEN AND UNLABORED ON RA. AAOX4. PT GIVEN D/C INSTRUCTIONS, GIVEN NEW PRESCRIPTIONS, INSTRUCTED TO F/U WITH DR PETERSON. IV D/C INTACT, TELE #44 REMOVED AND RETURNED TO TELE STATION. PT ESCORTED TO LOBBY BY ME AND [place] STUDENT NURSE VIA WHEELCHAIR.
== END 2017-02-14 15:08 | disposition home or self-care (01) | DRG 812 ==
LOC: ED 08:05 → DU 10:24
PROVIDERS: Emergency Medicine; ADMIT Family Medicine Sports Medicine
DX: T42.4X1A Poisoning by benzodiazepines, accidental (unintentional), initial encounter (principal); G92 Toxic encephalopathy; F32.3 Major depressive disorder, single episode, severe with psychotic features; R73.03 Prediabetes; Y92.018 Other place in single-family (private) house as the place of occurrence of the external cause; Z86.73 Personal history of transient ischemic attack (TIA), and cerebral infarction without residual deficits; G50.0 Trigeminal neuralgia; Z90.49 Acquired absence of other specified parts of digestive tract; F13.20 Sedative, hypnotic or anxiolytic dependence, uncomplicated; Z82.49 Family history of ischemic heart disease and other diseases of the circulatory system
CPT/HCPCS: 82962; 83880; 84439; 90715; 97530-GP; G0480; J1885; J2060; J2270; J7030; Q0092

== ENCOUNTER 2017-02-16 09:31 | Emergency (ER) | payer OTHER ==
[~2017-02-16] VITALS: Ht 175.3 cm; Wt 91.2 kg
[2017-02-16 11:38] LABS: microscopic required? NO
[2017-02-16 12:16] LABS: UA SPECIFIC GRAVITY 1.015 (1.005-1.035); urine erythrocyte NEGATIVE (NEGATIVE)
[2017-02-16 12:50] VITALS: BP 124/61
== END 2017-02-16 12:50 | disposition home or self-care (01) ==
LOC: ED 09:31
PROVIDERS: Emergency Medicine
DX: F41.9 Anxiety disorder, unspecified (principal); R10.9 Unspecified abdominal pain
CPT/HCPCS: 83880; J1885

== ENCOUNTER 2017-02-18 22:07 | Emergency (ER) | payer OTHER ==
[2017-02-18 23:28] VITALS: BP 133/67
== END 2017-02-18 23:28 | disposition home or self-care (01) ==
LOC: ED 22:07
DX: F41.1 Generalized anxiety disorder (principal); E78.00 Pure hypercholesterolemia, unspecified; F31.9 Bipolar disorder, unspecified; G50.0 Trigeminal neuralgia; F20.9 Schizophrenia, unspecified

== ENCOUNTER 2017-07-18 08:08 | Emergency (ER) | payer OTHER ==
[~2017-07-18] VITALS: Ht 175.3 cm; Wt 93.9 kg
[2017-07-18 08:24] VITALS: Ht 175.3 cm; Wt 93.9 kg
[2017-07-18 09:42] LABS: BASOPHIL % 0.7 % (0-2); PLATELET COUNT 207 x10^3mcL (130-400); RED CELL DISTRIBUTION WIDTH 14.3 % (11.5-14.5)
[2017-07-18 10:01] LABS: CALCIUM 8.1 mg/dL (8.5-10.1); CARBON DIOXIDE 33.2 mmol/L (21-32); CHLORIDE SERUM 103 mmol/L (98-107); CREATININE SERUM 0.7 mg/dL (0.7-1.3); GFR1 > 60 mL/min; GLUCOSE SERUM 109 mg/dL (74-106); POTASSIUM SERUM 4.3 mmol/L (3.5-5.1); SODIUM SERUM 139 mmol/L (136-145)
[2017-07-18 10:05] LABS: ALBUMIN 3.7 g/dL (3.4-5.0); ALKALINE PHOSPHATASE 76 U/L (46-116); ALT/SGPT 73 U/L (16-63); AST/SGOT 39 U/L (15-37); BILIRUBIN TOTAL 0.3 mg/dL (0.20-1.00); CHOLESTEROL 160 mg/dL (<200); HDL CHOLESTEROL 60 mg/dL (40-60); MAGNESIUM 1.9 mg/dL (1.8-2.4); TOTAL PROTEIN, SERUM 6.8 g/dL (6.4-8.2)
[2017-07-18 11:15] VITALS: BP 119/75
== END 2017-07-18 11:15 | disposition home or self-care (01) ==
LOC: ED 08:08
PROVIDERS: Emergency Medicine
DX: F41.9 Anxiety disorder, unspecified (principal); G50.0 Trigeminal neuralgia; T42.1X1A Poisoning by iminostilbenes, accidental (unintentional), initial encounter; Y92.89 Other specified places as the place of occurrence of the external cause
CPT/HCPCS: 36415; 83880; Q0092

== ENCOUNTER 2017-08-07 14:52 | Emergency (ER) | payer OTHER ==
[~2017-08-07] VITALS: Ht 175.3 cm; Wt 94.1 kg
[2017-08-07 15:17] VITALS: BP 144/96; Ht 175.3 cm; Wt 94.1 kg
== END 2017-08-07 16:21 | disposition home or self-care (01) ==
LOC: ED 14:52
DX: F41.9 Anxiety disorder, unspecified (principal); Z76.0 Encounter for issue of repeat prescription

== ENCOUNTER 2017-09-12 08:22 | Emergency (ER) | payer OTHER ==
[~2017-09-12] VITALS: Ht 175.3 cm; Wt 95.2 kg
[2017-09-12 08:25] VITALS: Ht 175.3 cm; Wt 95.2 kg
[2017-09-12 10:08] VITALS: BP 140/82
== END 2017-09-12 10:08 | disposition home or self-care (01) ==
LOC: ED 08:22
DX: G50.0 Trigeminal neuralgia (principal); F31.9 Bipolar disorder, unspecified

== ENCOUNTER 2017-10-07 05:56 | Emergency (ER) | payer OTHER ==
[~2017-10-07] VITALS: Ht 175.3 cm; Wt 95.7 kg
[2017-10-07 06:01] VITALS: Ht 175.3 cm; Wt 95.7 kg
[2017-10-07 07:33] VITALS: BP 134/87
[2017-10-07 07:49] LABS: CALCIUM 8.1 mg/dL (8.5-10.1); CARBON DIOXIDE 29.4 mmol/L (21-32); CHLORIDE SERUM 108 mmol/L (98-107); CREATININE SERUM 0.7 mg/dL (0.7-1.3); GFR1 > 60 mL/min; POTASSIUM SERUM 4.9 mmol/L (3.5-5.1); SODIUM SERUM 143 mmol/L (136-145)
[2017-10-07 07:57] LABS: GLUCOSE SERUM 115 mg/dL (74-106)
== END 2017-10-07 08:26 | disposition home or self-care (01) ==
LOC: ED 05:56
PROVIDERS: Emergency Medicine
DX: G50.0 Trigeminal neuralgia (principal); F20.9 Schizophrenia, unspecified; Z88.5 Allergy status to narcotic agent
CPT/HCPCS: J1885

== ENCOUNTER 2017-10-10 17:16 | Emergency (ER) | payer MEDICAID ==
[~2017-10-10] VITALS: Ht 175.3 cm; Wt 95.7 kg
[2017-10-10 17:25] VITALS: Ht 175.3 cm; Wt 95.7 kg
[2017-10-10 19:40] VITALS: BP 134/70
== END 2017-10-10 19:40 | disposition home or self-care (01) ==
LOC: ED 17:16
DX: Z76.0 Encounter for issue of repeat prescription (principal); G50.0 Trigeminal neuralgia; G45.9 Transient cerebral ischemic attack, unspecified; F31.9 Bipolar disorder, unspecified; F20.9 Schizophrenia, unspecified

== ENCOUNTER 2017-10-11 05:13 | Emergency (ER) | payer MEDICAID ==
[~2017-10-11] VITALS: Ht 175.3 cm; Wt 95.7 kg
[2017-10-11 06:46] VITALS: BP 138/91
== END 2017-10-11 06:46 | disposition home or self-care (01) ==
LOC: ED 05:13
DX: F41.9 Anxiety disorder, unspecified (principal); F20.9 Schizophrenia, unspecified; G45.9 Transient cerebral ischemic attack, unspecified; F31.9 Bipolar disorder, unspecified; G50.0 Trigeminal neuralgia; Z88.5 Allergy status to narcotic agent